=== PATIENT | female | born 1945 | race Caucasian/White ===

== ENCOUNTER 2016-11-28 09:55 | Outpatient (CLI) | payer MEDICARE ==
[~2016-11-28 09:55] MED LIST: ARIMIDEX1 MG PO; GEMFIBROZIL600 MG PO; IBUPROFEN 600M600 MG PO; METOPROLOL SUCC50 M1 PO; NORCO 325 MG-51 TAB PO; PRAVASTATIN 40M40 MG PO; VITAMIN B650 MG PO; ZOFRAN ODT8 MG PO; ZOLOFT25 MG PO
[2016-11-28 10:15] VITALS: BP 161/111
[2016-11-28] MEDS ORDERED: CALTRATE PLUS1 TAB PO (10:43)
[2016-11-28] MEDS ORDERED: NOLVADEX20 MG PO (10:45)
== END 2016-11-28 10:45 | disposition home or self-care (01) ==
LOC: COP 09:55
DX: M81.0 Age-related osteoporosis without current pathological fracture (principal); C50.911 Malignant neoplasm of unspecified site of right female breast; Z17.0 Estrogen receptor positive status [ER+]
CPT/HCPCS: J0897

== ENCOUNTER → 2017-01-04 | Outpatient (CLI) | payer MEDICARE ==
[~2017-01-04] MED LIST changes: +CALTRATE PLUS1 TAB PO; +NOLVADEX20 MG PO
[2017-01-04 11:13] LABS: HEMOGLOBIN 13.8 g/dL (12.2-16.2); LYMPH # 1.3 K/mm3 (0.7-4.5); LYMPH % 32.6 % (10-50.0)
[2017-01-04 13:53] LABS: BILIRUBIN, INDIRECT 0.38 mg/dL (0-0.9); BUN 16 mg/dL (7-18)
[2017-01-04 13:59] LABS: GFR (ESTIMATED) 55 ML/MIN (59-)
== END ==
LOC: LAB 09:55
PROVIDERS: Nurse Practitioner
DX: C50.911 Malignant neoplasm of unspecified site of right female breast (principal); M81.0 Age-related osteoporosis without current pathological fracture